=== PATIENT | female | born 1950 | race Caucasian/White ===

== ENCOUNTER 2017-09-18 10:28 | Outpatient (CLI) | payer MEDICARE | END 2017-09-18 10:29 | disposition home or self-care (01) | LOC: BICMAMMO 10:28 | PROVIDERS: ATTEND Internal Medicine Hematology & Oncology | DX: Z08 Encounter for follow-up examination after completed treatment for malignant neoplasm (principal); Z85.3 Personal history of malignant neoplasm of breast | CPT/HCPCS: 77066; G0279 ==

== ENCOUNTER 2018-05-02 11:22 | Outpatient (CLI) | payer MEDICARE ==
[2018-05-02 12:27] LABS: Hemoglobin 14.5 g/dL (12.0-16.0); Mean Corpuscular HGB CONC 33.5 g/dL (32.0-36.0); Mean Corpuscular Hemoglobin 29.5 pg (27.0-31.0); Mean Platelet Volume 7.7 fL (7.4-10.4); Platelet Count 184 thou/uL (130-400); RBC Distribution Width 11.9 % (11.5-14.5); Red Blood Cell (RBC) Count 4.92 mill/uL (4.20-5.40); White Blood Cell (WBC) Count 6.1 thou/uL (4.8-10.8)
--- NOTE | 2018-05-02 20:11 | EKG ---
Test Reason : Blood Pressure : / mmHG Vent. Rate : 069 BPM Atrial Rate : 069 BPM P-R Int : 184 ms QRS Dur : 074 ms QT Int : 386 ms P-R-T Axes : 062 053 066 degrees QTc Int : 413 ms Sinus rhythm with Premature atrial complexes Otherwise normal ECG When compared with ECG of 30-JUL-2012 08:35, No significant change was found Confirmed by UBALDO OSBORN, . SSunita (4) on 05/02/2018 8:10:56 PM Referred By: ISAAC Confirmed By:DR. Dillon CONNER MD
== END 2018-05-02 11:23 | disposition home or self-care (01) ==
LOC: LABBT 11:22
PROVIDERS: ATTEND Obstetrics & Gynecology
DX: Z01.818 Encounter for other preprocedural examination (principal); N81.4 Uterovaginal prolapse, unspecified
CPT/HCPCS: 85027; 86850; 86900; 86901; 93005; 93010

== ENCOUNTER 2018-05-09 09:40 | Day surgery (SDC) | payer MEDICARE ==
[2018-05-02 11:37] VITALS: BMI 28.3
--- NOTE | 2018-05-08 23:30 | HP ---
REASON FOR ADMISSION: Symptomatic uterovaginal prolapse with cystocele and rectocele. SCHEDULED PROCEDURE: Total laparoscopic hysterectomy, bilateral salpingo-oophorectomy, vaginal vault suspension, anterior repair and possible posterior repair. HISTORY OF PRESENT ILLNESS: Ms. Sharma is a 67-year-old 3, para 3, status post x3 with a long history of complaint of for urination, pelvic pressure and heaviness. On exam, she was found to have utero-vaginal prolapse and desires definitive surgical management. OUTREACH WORKER HISTORY: as noted. Negative Pap. No STD history. PAST MEDICAL HISTORY: Significant for breast cancer. PAST SURGICAL HISTORY: History of lumpectomy and tubal ligation. ALLERGIES: NONE. MEDICATIONS: 1. Alendronate. 2. Baby aspirin. 3. Calcium. 4. Fish oil. 5. Lisinopril. 6. Simvastatin. 7. Vitamin D3. SOCIAL HISTORY: Denies tobacco, alcohol or IV drug abuse. FAMILY HISTORY: Noncontributory. REVIEW OF SYSTEMS: Noncontributory. PHYSICAL EXAMINATION: GENERAL: White female. VITAL SIGNS: Height 5 feet 2 inches, weight 156, BMI 28.5, blood pressure 130/74. HEENT: Within normal limits. LUNGS: Clear to auscultation bilaterally. HEART: Regular rate and rhythm. BREASTS: No masses bilaterally. ABDOMEN: Soft and nontender. No rebound or guarding. GENITALIA: Vulvar lesions. Vagina; the patient has a second-degree cystocele and rectocele with moist mucosa. She has no cervical lesions. The cervix is noted to be at the introitus. She has no Valsalva. IMPRESSION: Uterovaginal prolapse, cystocele and mild rectocele. PLAN: Discussed with the patient options that we will proceed with laparoscopic hysterectomy, bilateral salpingo-oophorectomy, possible anterior repair, possible posterior repair with da Jr robot vaginal vault suspension at [facility] on 05/09. We will administer appropriate antibiotics and DVT prophylaxis. Job ID: [id number]
[2018-05-09] MEDS ORDERED: Gabapentin 300 MG CAP ONE (10:02)
[2018-05-09] MEDS ORDERED: Famotidine/PF 20 mg/2ml Vial ONE (10:02)
[2018-05-09] MEDS ORDERED: CeleCOXIB 100 MG CAP ONE (10:02)
[2018-05-09] MEDS ORDERED: Lidocaine 1% w/Epinephrine 1:100K 30 ML VIAL ONE (10:44)
[2018-05-09] MEDS ORDERED: Bupivacaine HCl 0.5%/Epinephrine 1:200,000/PF 30 ml Vial ONE (10:44)
[2018-05-09] MEDS ORDERED: Lidocaine 2% w/Epinephrine 1:200K 20 ML VIAL ONE (10:45)
[2018-05-09] MEDS ORDERED: CEFAZOLIN 2 GM/50 ML BAG ONE (10:51)
[2018-05-09] MEDS ORDERED: Fentanyl 100 MCG/2 ML VIAL ONE (11:09)
[2018-05-09] MEDS ORDERED: Midazolam HCl 2 mg/2 ml Vial ONE (11:09)
[2018-05-09] MEDS ORDERED: Morphine 2 MG/ML SYRINGE SLOW IVP PRN ×2 (14:57)
[2018-05-09] MEDS ORDERED: Ondansetron PF 4 MG/2 ML Vial IVP PRN (14:57)
[2018-05-09] MEDS ORDERED: Promethazine HCl 25 MG/ML VIAL IM PRN (14:57)
[2018-05-09] MEDS ORDERED: diphenhydrAMINE 25 MG CAP PO PRN (14:57)
[2018-05-09] MEDS ORDERED: Simethicone Chewable 80 MG TAB PO PRN (14:57)
[2018-05-09] MEDS ORDERED: Zolpidem Tartrate 5 MG TAB PO PRN (14:57)
[2018-05-09] MEDS: Sodium Chloride 0.9% 1,000 ML IV SCH ×2 (16:13→23:48)
[2018-05-09] MEDS ORDERED: Dexamethasone 20 MG/5 ML VIAL ONE (16:38)
[2018-05-09] MEDS ORDERED: PROPOFOL 200 MG/20 ML VIAL ONE (16:38)
[2018-05-09] MEDS ORDERED: Ondansetron PF 4 MG/2 ML Vial ONE (16:38)
[2018-05-09] MEDS: Acetaminophen 1,000 MG in Premix Bag 1 BAG IVPB SCH ×2 (17:43→23:50)
--- NOTE | 2018-05-09 18:13 | OP ---
DATE OF PROCEDURE: 05/09/2018 PREOPERATIVE DIAGNOSIS: Uterovaginal prolapse with second-degree cystocele, first-degree rectocele. POSTOPERATIVE DIAGNOSIS: Uterovaginal prolapse with first-degree cystocele and rectocele. PROCEDURES PERFORMED: Total laparoscopic hysterectomy with bilateral salpingo-oophorectomy and uterosacral ligament, vaginal vault suspension. SPORTS INFORMATION DIRECTOR: Rosalina Mina DO ESTIMATED BLOOD LOSS: Less than 50 mL. MEDICATIONS: 2 g of Ancef preincision, DVT prophylaxis with SCDs. DRAINS: Rivera to gravity. ANESTHESIA: General endotracheal. ANESTHESIOLOGIST: Marcus Sesay MD OPERATIVE FINDINGS: 1. Cervix protruding to the level of the introitus preoperatively with mild cystocele. 2. Complete reduction of cystocele and rectocele, vaginal vault suspension, posthysterectomy with vault suspension. 3. Small abrasion in posterior vaginal wall from chronic prolapse than uterine manipulation. 4. Clear urine. COUNTS: Correct counts at the end of the procedure. DISPOSITION: Recovery room in good condition. DESCRIPTION OF PROCEDURE: After obtaining appropriate operative consent, the patient was taken to the operating room with general endotracheal anesthesia achieved without difficulty, and prepped and draped in dorsal supine position with Gurdeep stirrups. Cervix was visible at the introitus and was grasped with single tooth tenaculum at 12 o'clock. The patient was noted to have really minimal, if any rectocele even preoperatively and cystocele was felt to be second degree, was felt to be mostly associated with the uterovaginal aspect of the prolapse. Shandra manipulator with a 3.5 cm customs port director and an 8 cm obturator was placed without difficulty. Rivera catheter was placed portion of the procedure. A 5 mL of Marcaine was injected at the superior aspect of the umbilicus. A 12 mm skin incision was made. Veress needle was placed in abdominal cavity. Insufflation was carried out with carbon dioxide with max pressure of 15. A 12 mm trocar was placed, confirmation entry into the cavity noted. The patient was placed in steep Trendelenburg and right and left lateral placed without difficulty as well as an 11 mm right upper quadrant team assistant port. Bowel was mobilized out of the cul-de-sac, and Kameron and uterosacral ligaments identified bilaterally. Right was more prominent than the left. Ureter was identified lateral to the uterosacral ligaments bilaterally and an incision approximately 5 to 6 cm long from just below the level of the cervix cephalad was made in the peritoneum between the uterosacral ligament and the ureter and this space dissected open to facilitate ability to plicate the uterosacral ligaments without kinking the ureter. Once this was done, the infundibulopelvic ligament on the patient's left was identified, coagulated, and transected, and then through the broad, in the round ligament on that side. This was carried down to the level of the internal cervical os. Anteriorly, the vesicouterine peritoneum was incised sharply. As would be anticipated with severe prolapse, it was very redundant. The peritoneum and the bladder were dissected off the lower uterine segment, cervix and upper vagina judiciously, but also with a good margin at the level of the apex of the vagina to facilitate closure and suspension. Skeletonization of the uterine vessel was carried out on the patient's left and these were coagulated and transected. Attention was turned to the patient's right, where the identical procedure was carried out, coagulating and transecting the infundibulopelvic through the broad, the round, and down to the level of the internal cervical os. Further skeletonization of the vessels on the patient's right was carried down, these were coagulated and transected as well. Once this was accomplished, specimen was amputated, incising through the vagina from 12 to 3, 3 to 6, 6 to 9, and 12 to 9. Shandra vaginal obturator device was removed from the and then placed in the vagina to maintain pneumoperitoneum. Inspection of the pedicle revealed the vaginal cuff was closed using a running continuous 0 PDS suture lock in a 2-layer closure from right to left and then left to right. At this point in time, the vagina was elevated up with a sponge stick in the vagina. Previously identified uterosacral ligaments were identified on the patient's right, 0 Ethibond was placed doubly through it. Approximately, 6 cm away from the level of the vaginal apex. It was then peritoneum of the uterosacral ligament and through the right corner and then middle of the vaginal cuff closure and then back underneath the peritoneum and back to the uterosacral ligament. It was tied down to spin the vaginal apex with a slipknot, pulling the vaginal cuff up well, and inspection revealed there to be no distortion of the ureter by this. It was then tied down and cut. Attention was turned to the left and the identical procedure was carried out. Again after tying it down, the ureter was identified and noted to be non-distorted and peristalsing well. The central portion of the cul-de-sac was closed using a Wilkinson culdoplasty technique, using an 0 Ethibond suture as well. Suction irrigation was carried out and no areas of bleeding were noted. Tisseel was applied across all surgical surfaces. The abdomen was desufflated with carbon dioxide after removing da Jr instruments, trocars, and undocking the robot. Trocars were removed and the fascia was reapproximated with umbilical trocar using 0 Vicryl and then the skin x4 using 4-0 Monocryl and Dermabond. The patient's legs were rotated up intending to proceed with anterior repair. After correction of the uterovaginal prolapse with hysterectomy and vault suspension, the patient had minimal demonstrable cystocele and no significant rectocele noted. There was a small area of abrasion and rawness posteriorly in the midline. Some degree of irritation from the cervix being located there had been noted preoperatively and was apparently exacerbated by the uterine manipulator intraoperatively. A horizontal mattress of 0 Vicryl was placed over x1 and good hemostasis was noted. Clear urine was noted with good urine output throughout the case. The patient was awakened and extubated to the recovery room in good condition. Job ID: [id number]
[2018-05-09] MEDS ORDERED: Atorvastatin Calcium 10 MG TAB PO SCH (21:00)
[2018-05-09] MEDS: Ibuprofen 800 MG TAB PO SCH (21:56)
[2018-05-10] MEDS: Ibuprofen 800 MG TAB PO SCH (06:15)
[2018-05-10] MEDS: Acetaminophen 1,000 MG in Premix Bag 1 BAG IVPB SCH (06:16)
[2018-05-10 06:21] LABS: Hemoglobin 12.4 g/dL (12.0-16.0); Mean Corpuscular HGB CONC 33.7 g/dL (32.0-36.0); Mean Corpuscular Hemoglobin 30.1 pg (27.0-31.0); Mean Corpuscular Volume 89.2 fL (78.0-98.0); Mean Platelet Volume 7.8 fL (7.4-10.4); Platelet Count 171 thou/uL (130-400); RBC Distribution Width 11.9 % (11.5-14.5); Red Blood Cell (RBC) Count 4.12 mill/uL (4.20-5.40); White Blood Cell (WBC) Count 10.8 thou/uL (4.8-10.8)
[2018-05-10] MEDS: Sodium Chloride 0.9% 1,000 ML IV SCH (06:41)
[2018-05-10 08:36] VITALS: TEMP 98.4
[2018-05-10 08:59] VITALS: BP 114/54
[2018-05-10] MEDS ORDERED: Lisinopril 20 MG TAB PO SCH (09:00)
[2018-05-10] MEDS ORDERED: Aspirin 81 mg Enteric Coated Tablet PO SCH (09:00)
[2018-05-10] MEDS ORDERED: HYDROcodone/Acetaminophen 10/325 mg Tablet PO PRN ×2 (22:00)
--- NOTE | 2018-05-11 08:34 | DIS ---
DATE OF ADMISSION: 05/09/2018 DATE OF DISCHARGE: 05/10/2018 PRINCIPAL AND HOSPITAL PROCEDURE: Total laparoscopic hysterectomy with bilateral salpingo-oophorectomy with uterosacral ligament vaginal vault suspension. SUMMARY OF HOSPITAL COURSE: The patient was admitted on the and underwent the aforementioned procedure at approximately 1200 hours. Surgical procedure was uncomplicated. The patient's Rivera was removed at p.m. of 1205 and she has been voiding with ease. She has been tolerating p.o. She has no complaints this morning. OBJECTIVE: VITAL SIGNS: Temperature is 98.0, pulse 73, blood pressure is 114/54, and respirations 18. HEENT: Within normal limits. LUNGS: Clear to auscultation bilaterally. HEART: Regular rate and rhythm. ABDOMEN: Soft and nontender. No rebound or guarding. Incisions are intact and dry. : Perineum is dry. EXTREMITIES: No clubbing, cyanosis, or edema. IMPRESSION: The patient is doing well, less than 24 hours status post total laparoscopic hysterectomy and vaginal vault suspension. PLAN: Discharge home. Nothing per vagina until released. Followup with [facility] [place] in 6 weeks. Job ID: [id number]
== END 2018-05-10 10:45 | disposition home or self-care (01) ==
LOC: SDC 09:40 → 3SE 14:50 → EDSTATUS 15:30 → SDC 05-10 10:45
PROVIDERS: ATTEND Obstetrics & Gynecology
PROC: 0UT94ZZ Resection of Uterus, Percutaneous Endoscopic Approach (ICD-10-PCS; principal; 2018-05-09)
PROC: 0UT24ZZ Resection of Bilateral Ovaries, Percutaneous Endoscopic Approach (ICD-10-PCS; 2018-05-09)
PROC: 0UT74ZZ Resection of Bilateral Fallopian Tubes, Percutaneous Endoscopic Approach (ICD-10-PCS; 2018-05-09)
PROC: 0USG4ZZ Reposition Vagina, Percutaneous Endoscopic Approach (ICD-10-PCS; 2018-05-09)
DX: N81.2 Incomplete uterovaginal prolapse (principal); N81.6 Rectocele; N88.8 Other specified noninflammatory disorders of cervix uteri; Z98.51 Tubal ligation status; Z85.3 Personal history of malignant neoplasm of breast; Z98.890 Other specified postprocedural states; Z79.899 Other long term (current) drug therapy
CPT/HCPCS: 36415; 85027; 88305; 96374; J0131; J0670; J1100; J2001; J2250; J2405; J2704; J3010; S0028

== ENCOUNTER 2018-10-24 10:00 | Outpatient (CLI) | payer MEDICARE ==
--- NOTE | 2018-10-24 10:39 | MMO ---
Bilateral MAMMO Bilat Screen [facility]. CLINICAL HISTORY: Patient is 68 years old and is seen for screening. The patient has no family history of breast cancer. The patient has a history of malignant (generic) in the right breast in 2013. The patient has a history of right needle biopsy in 2013 - malignant and right Lumpectomy in 2013 - malignant. VIEWS: The views performed were: bilateral craniocaudal with tomosynthesis and bilateral mediolateral oblique with tomosynthesis. FILMS COMPARED: The present examination has been compared to prior imaging studies performed at [facility] on 09/18/2017, and at [facility] on 08/08/2014, 08/10/2015 and 08/10/2016. MAMMOGRAM FINDINGS: There are scattered fibroglandular densities. There are stable benign appearing calcifications seen in both breasts. There are no suspicious masses, suspicious calcifications, or new areas of architectural distortion. IMPRESSION: THERE IS NO MAMMOGRAPHIC EVIDENCE OF MALIGNANCY. A ROUTINE FOLLOW-UP MAMMOGRAM IN 1 YEAR IS RECOMMENDED. THE RESULTS OF THIS EXAM WERE SENT TO THE PATIENT. ACR BI-RADS Category 2 - Benign finding MAMMOGRAPHY NOTE: 1. A negative mammogram report should not delay a biopsy if a dominant of clinically suspicious mass is present. 2. Approximately 10% to 15% of breast cancers are not detected by mammography. 3. Adenosis and dense breasts may obscure an underlying neoplasm.
== END 2018-10-24 10:01 | disposition home or self-care (01) ==
LOC: BICMAMMO 10:00
PROVIDERS: ATTEND Internal Medicine Hematology & Oncology
DX: Z12.31 Encounter for screening mammogram for malignant neoplasm of breast (principal); Z85.3 Personal history of malignant neoplasm of breast
CPT/HCPCS: 77063; 77067

== ENCOUNTER 2019-10-29 09:25 | Outpatient (CLI) | payer MEDICARE ==
--- NOTE | 2019-10-29 10:00 | MMO ---
Bilateral MAMMO Bilat Screen [facility]. CLINICAL HISTORY: Patient is 69 years old and is seen for screening. The patient has no family history of breast cancer. The patient has a history of malignant (generic) in the right breast in 2013. The patient has a history of right needle biopsy in 2013 - malignant and right Lumpectomy in 2013 - malignant. VIEWS: The views performed were: bilateral craniocaudal with tomosynthesis and bilateral mediolateral oblique with tomosynthesis. FILMS COMPARED: The present examination has been compared to prior imaging studies performed at [facility] on 09/18/2017 and 10/24/2018, and at [facility] on 08/10/2015 and 08/10/2016. This study has been interpreted with the assistance of computer-aided detection. MAMMOGRAM FINDINGS: There are scattered fibroglandular densities. Finding 1: There is an area of architectural distortion with associated post-surgical scar seen in the right breast. Finding 2: There are benign appearing calcifications seen in both breasts. There are no suspicious masses, suspicious calcifications, or new areas of architectural distortion. IMPRESSION: THERE IS NO MAMMOGRAPHIC EVIDENCE OF MALIGNANCY. A ROUTINE FOLLOW-UP MAMMOGRAM IN 1 YEAR IS RECOMMENDED. THE RESULTS OF THIS EXAM WERE SENT TO THE PATIENT. ACR BI-RADS Category 2 - Benign finding MAMMOGRAPHY NOTE: 1. A negative mammogram report should not delay a biopsy if a dominant of clinically suspicious mass is present. 2. Approximately 10% to 15% of breast cancers are not detected by mammography. 3. Adenosis and dense breasts may obscure an underlying neoplasm. Reported by: TIFFANIE MARINELLI MD Electonically Signed: [id number]
== END 2019-10-29 09:26 | disposition home or self-care (01) ==
LOC: BICMAMMO 09:25
PROVIDERS: ATTEND Internal Medicine Hematology & Oncology
DX: Z12.31 Encounter for screening mammogram for malignant neoplasm of breast (principal); Z85.3 Personal history of malignant neoplasm of breast; Z91.89 Other specified personal risk factors, not elsewhere classified
CPT/HCPCS: 77063; 77067

== ENCOUNTER 2020-11-23 11:39 | Outpatient (CLI) | payer MEDICARE | END 2020-11-23 11:40 | disposition home or self-care (01) | LOC: BICMAMMO 11:39 | PROVIDERS: ATTEND Internal Medicine Hematology & Oncology | DX: Z12.31 Encounter for screening mammogram for malignant neoplasm of breast (principal); Z85.3 Personal history of malignant neoplasm of breast; Z98.890 Other specified postprocedural states | CPT/HCPCS: 77063; 77067 ==